=== PATIENT | female | born 1975 | race American Indian/Alaskan Native ===

== ENCOUNTER 2016-08-30 14:06 | Emergency (ER) | payer OTHER ==
[2016-08-30 14:24] VITALS: BP 124/76
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
== END 2016-08-30 17:12 | disposition home or self-care (01) ==
LOC: ED 14:06
DX: S39.012A Strain of muscle, fascia and tendon of lower back, initial encounter (principal); F17.200 Nicotine dependence, unspecified, uncomplicated; Z88.8 Allergy status to other drugs, medicaments and biological substances; Z88.6 Allergy status to analgesic agent; V89.2XXA Person injured in unspecified motor-vehicle accident, traffic, initial encounter; Y92.488 Other paved roadways as the place of occurrence of the external cause; Y93.89 Activity, other specified; Y99.8 Other external cause status
CPT/HCPCS: 99282

== ENCOUNTER 2017-09-24 18:15 | Emergency (ER) | payer OTHER ==
[2017-09-24 18:32] VITALS: BP 140/80
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
== END 2017-09-24 22:30 | disposition home or self-care (01) ==
LOC: ED 18:15
DX: S16.1XXA Strain of muscle, fascia and tendon at neck level, initial encounter (principal); M62.830 Muscle spasm of back; F17.200 Nicotine dependence, unspecified, uncomplicated; V43.52XA Car driver injured in collision with other type car in traffic accident, initial encounter; Y93.89 Activity, other specified; Y92.89 Other specified places as the place of occurrence of the external cause; Y99.8 Other external cause status; Z88.6 Allergy status to analgesic agent; Z88.1 Allergy status to other antibiotic agents
CPT/HCPCS: 99282

== ENCOUNTER 2020-12-09 13:58 | Emergency (ER) | payer SELFPAY ==
[2020-12-09 16:53] VITALS: BP 152/69
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
== END 2020-12-09 20:30 | disposition home or self-care (01) ==
LOC: ED 13:58
DX: N75.0 Cyst of Bartholin's gland (principal); Z79.899 Other long term (current) drug therapy; Z88.6 Allergy status to analgesic agent; Z88.8 Allergy status to other drugs, medicaments and biological substances
CPT/HCPCS: 99282